=== PATIENT | female | born 1985 | race Caucasian/White ===

== ENCOUNTER 2025-02-19 13:59 | Observation (INO) ==
--- NOTE | 2025-02-19 14:17 | Emergency Department Note ---
HPI - Chest Pain General Chief Complaint: Chest Pain Stated Complaint: chest pain, dizziness, headache Time Seen by Provider: 02/19/25 14:10 Source: patient Mode of arrival: walk-in Limitations: no limitations History of Present Illness HPI narrative: This is a 39 year old female patient that presents to the ER with c/o chest pain and dizziness for 2 days. Patient states the chest pain comes and goes. Patient denies any SOB, back pain, abdominal pain, numbness, tingling, weakness or N/V MD complaint: Reports chest pain Onset (ago): day(s) (2) Timing of current episode: Reports episodic Onset: Reports during rest Pain location: Reports left chest Pain radiation: Reports left arm Severity: mild Quality: Reports sharp Relieving factors: Reports nothing Exacerbating factors: Reports nothing Treatment prior to arrival: Reports none Risk Factors Coronary artery disease risk factors: Reports none Thoracic aortic dissection risk factors: Reports none Pulmonary embolism risk factors: Reports none Related Data Allergies Allergy/AdvReac Type Severity Reaction Status Date / Time No Known Drug Allergies Allergy Verified 02/19/25 14:17 Review of Systems Status of ROS 10 or more systems reviewed and unremark able except as noted in history and below Constitutional Denies: fever, chills, change in weight, fatigue or malaise Eyes Denies: change in vision, blurry vision, blind spots or light sensitivity Ears, nose, mouth, and throat Denies: throat pain, neck pain, throat swelling, difficulty swallowing, hoarseness or mouth pain Cardiovascular Reports: chest pain and lightheadedness; Denies: palpitations, edema, swelling of feet/ankles or shortness of breath with exertion Respiratory Denies: shortness of breath, cough, wheezing, stridor, pain on inspiration or change in phlegm color Gastrointestinal Denies: abdominal pain, nausea, vomiting, coffee grounds in vomit, heartburn, diarrhea or constipation Genitourinary Denies: painful urination, urinary frequency, urinary urgency, urinary incontinence, blood in urine or difficulty voiding Musculoskeletal Denies: back pain, neck pain, extremity pain, extremity swelling, joint pain or limited range of motion Integumentary/Breast Denies: rash, itching, redness, skin pain, skin tenderness, skin swelling, sores or new lesion Neurological Reports: headache and dizziness; Denies: numbness in extremities, weakness in extremities, lack of coordination or vertigo Psychiatric Denies: anxiety, mood swings, panic attacks, change in sleep pattern, hopelessness, loss of interest or irritability Endocrine Denies: excessive urination, excessive thirst, fatigue, cold intolerance, excessive sweating, flushing or heat intolerance Hematologic/Lymphatic Denies: easy bruising, easy bleeding or enlarged lymph nodes Allergic/Immunologic Denies: hives, throat swelling, tongue swelling, facial swelling or wheezing Exam Constitutional: normal general appearance and no apparent distress Vital Signs - 24 hr 02/19/25 14:09 02/19/25 14:09 Temperature 98.3 F Pulse Rate 102 H Respiratory Rate 20 Blood Pressure 168/97 Pulse Oximetry 97 97 Oxygen Delivery Me thod Room Air Room Air HENMT: normocephalic, head/scalp atraumatic, hearing grossly normal bilaterally, external ears normal, EACs normal, nasal mucous membranes normal, external nose normal, oral mucous membranes normal and oropharynx normal Eyes: PERRL, EOMs intact bilaterally, conjunctivae normal, no scleral icterus and no papilledema Neck/C-Spine: visual inspection normal and trachea midline Lymph: no lymphadenopathy noted Chest: inspection of chest normal and palpation of chest normal Respiratory: breath sounds equal bilaterally, normal respiratory effort, clear to auscultation bilaterally, no wheezes, no rales, no retractions, no use of accessory muscles and chest percussion normal Cardiovascular: normal heart rate noted, regular rhythm noted, no gallop, no rub, no murmur, no JVD, no clicks, peripheral pulses 2+ throughout, no bruits noted and no additional abnormal heart sounds Gastrointestinal: abdomen normal to inspection, abdomen soft to palpation, nontender to palpation, nontender to percussion, nondistended, normoactive bowel sounds, no hepatosplenomegaly, no masses, no pulsatile mass, no ascites and no hernia Genitourinary: no CVA tenderness Back/Pelvis: spine normal to inspection Extremities: normal to inspection, normal to palpation, no tenderness, full ROM, no joint enlargement and no deformity 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 VSS, no s/s of acute distress noted Vital Signs Vital signs: Vital Signs Temperature 98.3 F 02/19/25 14:09 Pulse Rate 102 H 02/19/25 14:09 Respiratory Rate 20 02/19/25 14:09 Blood Pressure 168/97 02/19/25 14:09 Pulse Oximetry 97 02/19/25 14:09 Oxygen Delivery Method Room Air 02/19/25 14:09 Temperature 98.3 F 02/19/25 14:09 Pulse Rate 102 H 02/19/25 14:09 Respiratory Rate 20 02/19/25 14:09 Blood Pressure 168/97 02/19/25 14:09 Pulse Oximetry 97 02/19/25 14:09 Oxygen Delivery Method Room Air 02/19/25 14:09 MDM - Chest Pain Differential Diagnosis Differential diagnosis: Likely stable angina Medical Records Data Attestation: I reviewed the patient's medical records. Lab Data Attestation: I reviewed the patient's lab results. Labs: Lab Results 02/19/25 02/19/25 Range/Units 14:11 14:25 WBC 13.7 H (4.3-9.3) K/uL RBC 4.5 (4.00-5.50) M/uL Hgb 13.0 (12.5-15.8) gm/dL Hct 39.2 (35.9-46.7) % MCV 87.1 (81.0-93.7) fl MCH 28.8 (27.6-32.2) pg MCHC 33.1 (33.1-35.3) g/dl RDW 13.7 (11.4-14.2) % Plt Count 349 (152-353) K/uL MPV 7.9 (6.9-10.8) fl Gran % 76.2 H (47.8-71.3) % Lymph % (Auto) 16.6 L (20.0-43.0) % [place] % (Auto) 5.2 (3.6-9.8) % Eos % (Auto) 1.3 (0.4-2.8) % Baso % (Auto) 0.7 (0.1-0.85) Lymph # (Auto) 2.3 (1.1-3.1) [place] # (Auto) 0.7 L (1.1-3.1) Eos # (Auto) 0.2 (0.0-0.2) Baso # (Auto) 0.1 (0.0-0.1) Absolute Gran (auto) 10.4 H (2.3-6.0) D-Dimer 322 (100-600) ng/mL Sodium 141 (136-145) mmol/L Potassium 3.5 L (3.6-5.2) mmol/L Chloride 104.0 (98-107) mmol/L Carbon Dioxide 29 (21-32) mmol/L Anion Gap 8.0 (4-14) mEq/L BUN 14 (7-18) mg/dL Creatinine 0.7 (0.6-1.3) mg/dL Estimated GFR 111.4 (>59.9) Glucose 124 H (70-110) mg/dL Calcium 8.8 (8.5-10.1) mg/dL Total Bilirubin 0.18 (0.0-1.0) mg/dL AST 9 L (15-37) U/L ALT 16 L (30-65) U/L Alkaline Phosphatase 102 (50-136) U/L Troponin I High Sens 7.80 (4.0-60.4) ng/L Total Protein 6.9 (6.4-8.2) g/dL Albumin 3.5 (3.4-5.0) g/dL Urine Test Negative (Negative) Imaging Data Imaging ordered: CT scan - head Attestation: I have reviewed the pertinent imaging results. ECG Data Attestation: I have reviewed the pertinent ECG results. Discharge Plan Discharge Patient Disposition: Admitted As Observation Condition: Stable Chief Complaint: Chest Pain Clinical Impression: Chest pain, Dizziness Print Language: Albanian Referrals: Bita Howell [Primary Care Provider] - Time of Disposition: 16:06 [facility] Medical History (Updated 02/19/25 @ 14:21 by Maribel Ramey RN) HTN (hypertension) Social History Smoking status: never smoker
[2025-02-19 14:36] LABS: Basophils #(Absolute) Auto 0.1 (0.0-0.1); Basophils%(Percent) Auto 0.7 (0.1-0.85); Eosinophils#(Absolute)Auto 0.2 (0.0-0.2); Eosinophils%(Percent) Auto 1.3 % (0.4-2.8); Granulocytes % - Auto 76.2 % (47.8-71.3); Granulocytes#(Absolute)- Auto 10.4 (2.3-6.0); Hematocrit 39.2 % (35.9-46.7); Mean Corpuscular Volume 87.1 fl (81.0-93.7); Monocytes #(Absolute)- Auto 0.7 (1.1-3.1); Monocytes %(Percent)- Auto 5.2 % (3.6-9.8); Platelet Count 349 K/uL (152-353); White Blood Count 13.7 K/uL (4.3-9.3)
[2025-02-19 14:54] LABS: Potassium 3.5 mmol/L (3.6-5.2)
[2025-02-19] MEDS ORDERED: ASPIRIN 81 MG TAB.CHEW ONE (16:14)
[2025-02-19] MEDS ORDERED: NITROGLYCERIN 1 GM OINT...G. TD ONE (16:15)
[2025-02-19] MEDS: NITROGLYCERIN 1 GM OINT...G. TD ONE (16:16)
[2025-02-19] MEDS: ASPIRIN 81 MG TAB.CHEW PO ONE (16:17)
[2025-02-19] MEDS: ACETAMINOPHEN 500 MG TABLET PO PRN (19:08)
[2025-02-19] MEDS: NITROGLYCERIN 1 GM OINT...G. TD SCH (23:00)
[2025-02-19] MEDS: MORPHINE SULFATE 2 MG/ML CARTRIDGE IV PRN (23:45)
[2025-02-20 04:32] LABS: Basophils #(Absolute) Auto 0.1 (0.0-0.1); Basophils%(Percent) Auto 0.5 (0.1-0.85); Eosinophils#(Absolute)Auto 0.2 (0.0-0.2); Eosinophils%(Percent) Auto 1.7 % (0.4-2.8); Granulocytes % - Auto 74.4 % (47.8-71.3); Granulocytes#(Absolute)- Auto 8.4 (2.3-6.0); Hematocrit 34.9 % (35.9-46.7); Monocytes #(Absolute)- Auto 0.6 (1.1-3.1); Monocytes %(Percent)- Auto 5.2 % (3.6-9.8); Platelet Count 300 K/uL (152-353); White Blood Count 11.3 K/uL (4.3-9.3)
[2025-02-20 04:37] LABS: INR 1.02
[2025-02-20 04:47] LABS: Potassium 3.7 mmol/L (3.6-5.2)
[2025-02-20 08:10] VITALS: RESP 19
[2025-02-20] MEDS: ASPIRIN 81 MG TAB.CHEW PO SCH (09:09)
--- NOTE | 2025-02-20 10:37 | Short Stay Summary ---
H&P: HPI History of Present Illness Chief complaint: chest pain, dizziness, headache Narrative: This is a 39 year old female patient that presents to the ER with c/o chest pain and dizziness for 2 days. Patient states the chest pain comes and goes. Patient denies any SOB, back pain, abdominal pain, numbness, tingling, weakness or N/V. patient admitted to med/surg for further observation and treatment. Review of Systems Status of ROS 10 or more systems reviewed and unremark able except as noted in history and below Constitutional Reports: fatigue; Denies: fever, chills, change in weight or malaise Eyes Denies: change in vision, blurry vision, blind spots or light sensitivity Ears, nose, mouth, and throat Denies: throat pain, neck pain, throat swelling, difficulty swallowing, hoarseness, mouth pain or vertigo Cardiovascular Reports: chest pain and lightheadedness; Denies: palpitations, edema, swelling of feet/ankles or shortness of breath with exertion Respiratory Denies: shortness of breath, cough, wheezing, stridor, pain on inspiration or change in phlegm color Gastrointestinal Denies: abdominal pain, nausea, vomiting, coffee grounds in vomit, heartburn, diarrhea, constipation or difficulty swallowing Genitourinary Denies: painful urination, urinary frequency, urinary urgency, urinary incontinence, blood in urine or difficulty voiding Musculoskeletal Reports: back pain (chronic lower); Denies: neck pain, extremity pain, extremity swelling, joint pain or limited range of motion Integumentary/Breast Denies: rash, itching, redness, skin pain, skin t enderness, skin swelling, sores or new lesion Neurological Reports: headache and dizziness; Denies: numbness in extremities, weakness in extremities, lack of coordination, vertigo, confusion, behavioral changes, slurred speech or difficulty communicating thoughts Psychiatric Denies: anxiety, mood swings, panic attacks, change in sleep patte rn, hopelessness, loss of interest, irritability, memory loss, difficulty concentrating, suicidal ideation or homicidal ideation Endocrine Denies: excessive urination, excessive thirst, fatigue, cold intolerance, excessive sweating, flushing or heat intolerance Hematologic/Lymphatic Denies: easy bruising, easy bleeding or enlarged lymph nodes Allergic/Immunologic Denies: hives, throat swelling, tongue swelling, facial swelling or wheezing [facility] Medical History (Updated 02/20/25 @ 12:18 by Rakel Cerna DO) HTN (hypertension) Social History Smoking status: never smoker Problems where you live: no known problems Highest level of school completed/degree received: high school Meds Home Medications and Allergies Home Medications Medication Instructions Recorded Confirmed Type diclofenac potassium 50 mg tablet 50 mg PO BID costochondritis #14 02/20/25 Rx tabs losartan 50 mg tablet 50 mg PO DAILY htn #30 tabs 02/20/25 Rx Allergies Allergy/AdvReac Type Severity Reaction Status Date / Time No Known Drug Allergies Allergy Verified 02/19/25 14:17 Exam Exam: Patient in NAD. Constitutional: normal general appearance, no apparent distress, abnormal body habitus (obese), no limitations and alert Vital Signs - 24 hr 02/19/25 14:09 02/19/25 14:09 02/19/25 14:45 Temperature 98.3 F Pulse Rate 102 H 90 Pulse Rate [Left B rachial] Respiratory Rate 20 Blood Pressure 168/97 156/90 Blood Pressure [Le ft Arm] Pulse Oximetry 97 97 Oxygen Delivery Me thod Room Air Room Air 02/19/25 15:15 02/19/25 15:45 02/19/25 16:15 Temperature Pulse Rate 88 84 80 Pulse Rate [Left B rachial] Respiratory Rate Blood Pressure 148/88 148/82 140/78 Blood Pressure [Le ft Arm] Pulse Oximetry Oxygen Delivery Me thod 02/19/25 16:16 02/19/25 16:45 02/19/25 17:15 Temperature Pulse Rate 78 78 Pulse Rate [Left B rachial] Respiratory Rate Blood Pressure 168/97 142/80 146/84 Blood Pressure [Le ft Arm] Pulse Oximetry Oxygen Delivery Me thod 02/19/25 17:25 02/19/25 17:26 02/19/25 18:10 Temperature 98.2 F Pulse Rate 78 Pulse Rate [Left B rachial] 73 Respiratory Rate 18 20 Blood Pressure 140/92 Blood Pressure [Le ft Arm] 140/92 Pulse Oximetry 96 97 Oxygen Delivery Me thod Room Air 02/19/25 20:00 02/20/25 00:01 02/20/25 01:05 Temperature 97.9 F 97.6 F Pulse Rate Pulse Rate [Left B rachial] 92 H 68 Respiratory Rate 18 21 Blood Pressure 126/76 Blood Pressure [Le ft Arm] 136/83 126/76 Pulse Oximetry 96 100 Oxygen Delivery Me thod Room Air Room Air 02/20/25 04:06 02/20/25 08:00 Temperature 97.6 F 97.7 F Pulse Rate Pulse Rate [Left B rachial] 65 71 Respiratory Rate 20 19 Blood Pressure Blood Pressure [Le ft Arm] 114/63 134/83 Pulse Oximetry 98 98 Oxygen Delivery Me thod Room Air Room Air HENMT: normocephalic, head/scalp atraumatic, hearing grossly normal bilaterally, external ears normal, EACs normal, TMs normal bilaterally, nasal mucous membranes normal, external nose normal, oral mucous membranes normal and oropharynx normal Eyes: PERRL, EOMs intact bilaterally, conjunctivae normal, no scleral icterus, no papilledema, alignment normal, periorbital findings normal and no nystagmus Neck/C-Spine: trachea midline, cervical spine nontender, abnormal cervical ROM noted, no meningeal signs, thyroid normal and no carotid bruits Lymph: no lymphadenopathy noted and no lymphedema noted Chest: inspection of chest normal, palpation of chest normal and inspection of breasts normal Respiratory: breath sounds equal bilaterally, normal respiratory effort, clear to auscultation bilaterally, no wheezes, no rales, no retractions, no use of accessory muscles and chest percussion normal Cardiovascular: normal heart rate noted, regular rhythm noted, no gallop, no rub, no murmur, no JVD, no clicks, peripheral pulses 2+ throughout, no bruits noted and no additional abnormal heart sounds Gastrointestinal: abdomen normal to inspection, abdomen soft to palpation, nontender to palpation, nontender to percussion, nondistended, normoactive bowel sounds, no hepatosplenomegaly, no masses, no pulsatile mass, no ascites and no hernia Genitourinary: no CVA tenderness and bladder normal to palpation Back/Pelvis: no thoracic spine tenderness, lumbar spine tenderness noted, thoracic spine ROM normal, lumbar spine ROM abnormal and paraspinal muscle tenderness noted Extremities: normal to inspection, normal to palpation, no tenderness, full ROM, no joint enlargement and no deformity 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, no movement abnormality noted, no focal motor deficit noted, no sensory deficits noted, gait normal, speech normal, coordination normal, no pronator drift noted, no fasciculations noted and GCS normal Psychiatry: Mental Status Exam documented within this Exam's Psych section mental status grossly normal, oriented x3, thought process normal, cooperative and affect normal Feel stressed/tense/nervous/anxious/difficulty sleeping: decline to answer Skin: skin color normal, no rash, no lesions, no ecchymosis noted, no wounds, no lacerations, skin turgor abnormal Reports (tenting), no jaundice, no petechiae, no mottling, nails abnormality noted and no alopecia Assessment and Plan Assessment and Plan (1) Chest pain, rule out acute myocardial infarction: Code(s): R07.9 - Chest pain, unspecified (2) Dizziness: Code(s): R42 - Dizziness and giddiness (3) Acute costochondritis: Code(s): M94.0 - Chondrocostal junction syndrome [[place]] (4) Acute dehydration: Code(s): E86.0 - Dehydration (5) Headache: Qualifiers: Headache chronicity pattern: acute headache Headache type: unspecified Intractability: not intractable Qualified Code(s): R51.9 - Headache, unspecified Code(s): R51.9 - Headache, unspecified (6) HTN (hypertension): Qualifiers: Hypertension type: primary hypertension Qualified Code(s): I10 - Essential (primary) hypertension Code(s): I10 - Essential (primary) hypertension (7) Leukocytosis: Qualifiers: Leukocytosis type: monocytosis Qualified Code(s): D72.821 - Monocytosis (symptomatic) Code(s): D72.829 - Elevated white blood cell count, unspecified (8) Hypokalemia: Code(s): E87.6 - Hypokalemia (9) Hypocalcemia: Code(s): E83.51 - Hypocalcemia (10) Hypoproteinemia: Code(s): E77.8 - Other disorders of glycoprotein metabolism (11) Hypoalbuminemia: Code(s): E88.09 - Other disorders of plasma-protein metabolism, not elsewhere classified Plan Aspirin 324 mg PO DAILY Nitroglycerin 1 gm TD Q6H Morphine Sulfate 2 mg IV Q4H PRN Acetaminophen 500 mg PO Q6H PRN orthostatics toradol 30 mg IV x 1 solumedrol 125 mg IV x 1 losartan 50 mg po x 1 0.9 % bolus 1 liter x 1 Discharge home for self care. Results Labs Labs: CBC 02/19/25 02/20/25 Range/Units 14: 02:50 WBC 13.7 H 11.3 H (4.3-9.3) K/uL RBC 4.5 4.0 (4.00-5.50) M/uL Hgb 13.0 11.6 L (12.5-15.8) gm/dL Hct 39.2 34.9 L (35.9-46.7) % Plt Count 349 300 (152-353) K/uL Gran % 76.2 H 74.4 H (47.8-71.3) % Lymph % (Auto) 16.6 L 18.2 L (20.0-43.0) % [place] % (Auto) 5.2 5.2 (3.6-9.8) % Eos % (Auto) 1.3 1.7 (0.4-2.8) % Baso % (Auto) 0.7 0.5 (0.1-0.85) Lymph # (Auto) 2.3 2.1 (1.1-3.1) [place] # (Auto) 0.7 L 0.6 L (1.1-3.1) Eos # (Auto) 0.2 0.2 (0.0-0.2) Baso # (Auto) 0.1 0.1 (0.0-0.1) Absolute Gran (auto) 10.4 H 8.4 H (2.3-6.0) CMP 02/19/25 02/20/25 14:25 02:50 Sodium 141 139 Potassium 3.5 L 3.7 Chloride 104.0 104.0 Carbon Dioxide 29 28 BUN 14 13 Creatinine 0.7 0.7 Glucose 124 H 100 Calcium 8.8 8.4 L Liver Function 02/19/25 02/20/25 Range/Units 14: 02:50 Total Bilirubin 0.18 0.21 (0.0-1.0) mg/dL AST 9 L 10 L (15-37) U/L ALT 16 L 13 L (30-65) U/L Alkaline Phosphatase 102 83 (50-136) U/L Albumin 3.5 2.9 L (3.4-5.0) g/dL Pulse Oximetry Attestation: I have reviewed the pertinent pulse oximetry results. ECG Attestation: I have reviewed the pertinent ECG results. Prior ECG tracings: available for review Imaging Imaging ordered: Chest x-ray and CT scan - head Radiologist's impression: XR CHEST 1V Date of Service: 02/19/25 HISTORY: painpain; COMPARISON: None. FINDINGS: The trachea is midline. The cardiac silhouette is unremarkable. The lungs are clear without focal infiltrate or effusion. The bony thorax is unremarkable. IMPRESSION: No acute cardiopulmonary disease. CT HEAD WITHOUT CONTRAST Date of Service: 02/19/25 HISTORY: dizzydizzy; COMPARISON: None. TECHNIQUE: Axial CT images were obtained through the brain without contrast. All CT scans at this facility use dose modulation, iterative reconstruction, and/or weight based dosing when appropriate to reduce radiation dose to as low as reasonably achievable. FINDINGS: BRAIN: No evidence of acute infarct intra or extraaxial hemorrhage mass effect or hydrocephalus. CALVARIUM: Normal ADDITIONAL FINDINGS: The visualized paranasal sinuses and mastoid air cells are clear. Orbits are grossly unremarkable. IMPRESSION: No evidence of acute intracranial process. DS: Providers Provider Date of admission: 02/19/25 17:04 Primary care physician: Bita Howell Admitting clinician: Belinda Yee Attending physician on admission: Rakel Cerna Attending physician on discharge: Rakel Cerna Discharging clinician: Rakel Cerna Anticipated date of discharge: 02/20/25 DS: Summary Hospital Course Hospital Course: This is a 39 year old female patient that presents to the ER with c/o chest pain and dizziness for 2 days. Patient states the chest pain comes and goes. Patient denies any SOB, back pain, abdominal pain, numbness, tingling, weakness or N/V. Admitted patient to med/surg for further observation and treatment. Day two of hospital stay, patient chest pain and dizziness has resolved. Medication education was provided to patient on compliance. Patient is ready to be discharged home for self care. Follow up with PCP in 2-3 days of discharge, prior if needed. It is recommended patient receive an outpatient Stress Test, to be discussed and arranged by patient PCP. Status at Discharge Overall status at discharge: patient is back to baseline Time Spent with Patient Time attestation: Total time spent providing and/or coordinating discharge services: 46 Time spent: greater than 30 minutes Discharge Plan Discharge Disposition: Home, Self-Care Condition: Improved Discharge Medications: New losartan 50 mg tablet 50 mg PO DAILY Qty: 30 0RF diclofenac potassium 50 mg tablet 50 mg PO BID Qty: 14 0RF Activity: increase activity as tolerated Activity Detail: avoid heavy lifting above 10 pounds until released by PCP Diet: advance to your usual diet Activity Restrictions/Additional Instructions: follow up with her PCP 2-3 days with BP and pulse journal BID, varying times and Fasting lipids follow up Nuclear stress test as outpatient cardiovascular exercise 6 days a week at least 30 minutes total once released by her PCP stop energy drinks even though she has been working hard on cutting back to 2 per week increase water and electrolyte zero calorie drinks daily Forms: Portal/Health Info Access Inst Follow-Ups: Bita Howell [Primary Care Provider] - 02/26/25 1:00 pm
[2025-02-20 12:25] VITALS: BP 144/91; PULSE 74; TEMP 97.9
[2025-02-20] MEDS: METHYLPREDNISOLONE SOD SUCC/PF 125 MG/2 ML VIAL IVP ONE (12:51)
[2025-02-20] MEDS: 0.9 % SODIUM CHLORIDE 1000 ML 1,000 ML IV SCH (12:51)
[2025-02-20] MEDS: KETOROLAC 30 MG/ML INJ VIAL IVP ONE (12:51)
== END 2025-02-20 14:05 | disposition home or self-care (01) ==
LOC: MS 13:59 → ED 13:59 → MS 17:27
PROVIDERS: ADMIT Family Medicine; ATTEND Family Medicine
DX: E83.51 Hypocalcemia; E77.8 Other disorders of glycoprotein metabolism; R51.9 Headache, unspecified; R42 Dizziness and giddiness; E88.09 Other disorders of plasma-protein metabolism, not elsewhere classified; E86.0 Dehydration; R07.9 Chest pain, unspecified; M94.0 Chondrocostal junction syndrome [Tietze]; Z79.899 Other long term (current) drug therapy; E87.6 Hypokalemia; I10 Essential (primary) hypertension; D72.821 Monocytosis (symptomatic)